=== PATIENT | female | born 1960 | race Caucasian/White ===

== ENCOUNTER 2017-08-11 07:10 | Day surgery (SDC) | payer OTHER ==
[~2017-08-11] VITALS: Ht 170.2 cm; Wt 59.9 kg
[~2017-08-11 07:10] MED LIST: ACYC400; CRINONE1.125 GM; DHEA25 MG; Hair, Skin & N1 EACH; Prozac20 MG; Vitamin C100 M1; ZOLP10; [UNRECOGNIZED DRUG - OTHER]
== END 2017-08-11 10:00 | disposition home or self-care (01) ==
LOC: ORSCSDS 07:10
PROVIDERS: Internal Medicine Gastroenterology
PROC: 0DJD8ZZ Inspection of Lower Intestinal Tract, Via Natural or Artificial Opening Endoscopic (ICD-10-PCS; principal; 2017-08-11 08:30)
DX: Z12.11 Encounter for screening for malignant neoplasm of colon (principal); K64.8 Other hemorrhoids; K57.30 Diverticulosis of large intestine without perforation or abscess without bleeding; Z86.010 Personal history of colon polyps; Z83.71 Family history of colonic polyps; F41.9 Anxiety disorder, unspecified; Z79.899 Other long term (current) drug therapy

== ENCOUNTER → 2017-09-29 | Outpatient (CLI) | payer OTHER | END | disposition home or self-care (01) | LOC: LAB SHORT 14:04 → PLD 14:04 | DX: D22.5 Melanocytic nevi of trunk (principal); D03.72 Melanoma in situ of left lower limb, including hip | CPT/HCPCS: 88305 ==

== ENCOUNTER → 2017-10-25 | Outpatient (CLI) | payer OTHER | END | disposition home or self-care (01) | LOC: PLD 11:14 → LAB SHORT 11:14 | DX: D22.72 Melanocytic nevi of left lower limb, including hip (principal) | CPT/HCPCS: 88305 ==

== ENCOUNTER → 2018-03-28 | Outpatient (CLI) | payer OTHER | END | disposition home or self-care (01) | LOC: PLD 11:28 → LAB SHORT 11:28 | DX: D22.5 Melanocytic nevi of trunk (principal); D22.61 Melanocytic nevi of right upper limb, including shoulder; L82.1 Other seborrheic keratosis; L81.4 Other melanin hyperpigmentation | CPT/HCPCS: 88305 ==

== ENCOUNTER → 2018-12-08 | Outpatient (CLI) | payer OTHER | LOC: LAB 10:06 → LAB SHORT 10:06 | DX: J02.9 Acute pharyngitis, unspecified (principal) | CPT/HCPCS: 87081 ==

== ENCOUNTER 2019-10-05 18:39 | Inpatient (IN) | payer OTHER ==
[~2019-10-05] VITALS: Ht 170.2 cm; Wt 57.0 kg
[2019-10-05 21:09] LABS: International Normalized Ratio 1.01; Prothrombin Time Results 10.8 Sec (9.7-11.5)
[2019-10-05 21:11] LABS: BASOPHILS ABSOLUTE AUTO 0.04 K/mm3 (0.00-0.23); BASOPHILS PERCENT AUTO 0 % (0-2); EOSINOPHILS PERCENT AUTO 0 % (0-6); Hematocrit 39.3 % (33.0-51.0); Hemoglobin 13.2 g/dL (11.5-16.0); IMMATURE GRAN ABSOLUTE AUTO 0.05 K/mm3 (0.00-0.10); IMMATURE GRAN PERCENT AUTO 0 % (0-1); LYMPHOCYTES ABSOLUTE AUTO 1.34 K/mm3 (0.84-5.20); LYMPHOCYTES PERCENT AUTO 10 % (21-46); MONOCYTES ABSOLUTE AUTO 0.62 K/mm3 (0.16-1.47); MONOCYTES PERCENT AUTO 5 % (4-13); Mean Corpuscular HGB 32.3 pg (26.0-34.0); Mean Corpuscular HGB Conc 33.6 g/dL (31.5-36.5); Mean Corpuscular Volume 96 fL (80-100); NEUTROPHILS ABSOLUTE AUTO 10.89 K/mm3 (1.96-9.15); NEUTROPHILS PERCENT AUTO 84 % (41-73); Platelet Count 270 K/mm3 (150-400); RDW Coefficient Variation 12.2 % (11.7-14.2); RDW Standard Deviation 42.7 fL (35.1-46.3); Red Blood Cell Count 4.09 M/mm3 (3.80-5.20); White Blood Cell Count 12.94 K/mm3 (4.00-11.30)
[2019-10-05 21:13] LABS: Anion Gap 7 mmol/L (6-16); Blood Urea Nitrogen 15 mg/dL (8-24); Bun/Creatinine Ratio 18.6 (12.0-20.0); CO2, Blood 26 mmol/L (21-32); Calcium, Blood 9.6 mg/dL (8.5-10.1); Chloride, Blood 108 mmol/L (98-108); Creatinine, Blood 0.81 mg/dL (0.40-1.00); Glomerular Filtration Rate >60 (60-); Glucose, Blood 105 mg/dL (70-99); Potassium, Blood 3.5 mmol/L (3.5-5.5); Sodium, Blood 141 mmol/L (136-145)
--- NOTE | 2019-10-06 06:00 | NUR ---
SHIFT SUMMARY PT A/OX4 WITH VSS. CHEST TUBE TO LEFT UPPER CHEST IN PLACE AND APPEARS C/D/I. PT DENIES SOB OR DYSPNEA. SPO2 ABOVE 95% ON RA. ABLE TO AMBULATE TO BATHROOM W/OUT DIFFICULTY. PAIN MANAGED WITH ONE TAB PO MEDICATION, PER PT REQUEST. DENIES N/V. IS CURRENTLY RESTING IN BED WITH CALL LIGHT IN REACH AND BED IN LOWEST POSITION. WILL CONT TO MONITOR AND GIVE REPORT TO ONCOMING RN.
--- NOTE | 2019-10-06 16:59 | NUR ---
SHIFT SUMMARY: PATIENT IS ALERT AND ORIENED X4. CHEST TUBE TO LEFT UPPER CHEST IS IN PLACE AND IS C/D/I. DR. TAM TURNED OFF THE SUCTION EARILIER IN THE SHIFT, AND SHE HAS BEEN DOING GREAT ON ROOM AIR. PATIENT IS ABLE TO AMBULATE TO THE BATHROOM WITH ASSISTANCE BECAUSE OF THE CHEST TUBING/CHAMBER. SHE HAS BEEN EATING ADEQUATLY FOR EACH MEAL. PAIN IS MANAGED WITH ONE TAB PO OF PAIN MEDICATION BY PATIENT REQUEST. SHE DENIES NAUSEA OR VOMITING. PATIENT IS CURRENTLY IN BED WITH CALL LIGHT WITHIN REACH AND BED AT LOWEST POSITION. WILL CONTINUE TO MONITOR UNTIL I GIVE REPORT TO NEXT COMING RN.
--- NOTE | 2019-10-06 18:21 | NUR ---
VISUALIZER DOCUMENTATION HAS BEEN REVIEWED. THIS RN AGREES WITH DOCUMENTATION. WILL CONTINUE TO MONITOR.
--- NOTE | 2019-10-07 04:22 | NUR ---
SHIFT SUMMARY [id number], VSS. LUNG SOUNDS CLEAR IN ALL PINON, DENIES SOB. DENIES ON EXERTION. PT UP TO RESTROOM. MEDICATED FOR PAIN PER EMAR. TOLERATING PO WELL. CHEST TUBE CLAMPED AND ATTACHED PLAN IS TO REMOVE TODAY.
[2019-10-07] MEDS ORDERED: HYDR1TAB94 PO (15:19)
--- NOTE | 2019-10-07 15:33 | NUR ---
DC INSTRUCTIONS GIVEN, VERBALIZED UNDERSTANDING.
== END 2019-10-07 15:36 | disposition home or self-care (01) | DRG 200 ==
LOC: ER 18:39 → SURS 18:41
PROVIDERS: Emergency Medicine; ADMIT Surgery
PROC: 0W9B30Z Drainage of Left Pleural Cavity with Drainage Device, Percutaneous Approach (ICD-10-PCS; principal; 2019-10-05)
DX: S27.0XXA Traumatic pneumothorax, initial encounter (principal); S22.42XA Multiple fractures of ribs, left side, initial encounter for closed fracture; V86.59XA Driver of other special all-terrain or other off-road motor vehicle injured in nontraffic accident, initial encounter
CPT/HCPCS: 32551; 36415; 71045; 71260; 74177; 80048; 85025; 85610; 86850; 86900; 86901; 96374-59; 96375-59; 99284-25; A9270-GY; J1650; J1885; J2270; J2405; Q9967